=== PATIENT | male | born 1980 ===

== ENCOUNTER → 2023-03-10 | Emergency (ER) | payer BC ==
[~2023-03-10] MED LIST: IBUPROFEN 200 MG TAB PO ONE; IBUPROFEN 400 MG TAB ONE
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
[2023-03-10 20:26] VITALS: BP 143/103; TEMP 98.7; O2SAT 97
== END ==
LOC: ER 19:09
DX: M62.838 Other muscle spasm (principal); V50.5XXA Driver of pick-up truck or van injured in collision with pedestrian or animal in traffic accident, initial encounter